=== PATIENT | female | born 1965 | race Caucasian/White ===

== ENCOUNTER 2017-10-17 22:11 | Emergency (ER) | payer OTHER ==
[~2017-10-17] VITALS: Ht 172.7 cm; Wt 108.9 kg
== END 2017-10-17 23:38 | disposition home or self-care (01) ==
LOC: ER 22:11
DX: B37.2 Candidiasis of skin and nail (principal)
CPT/HCPCS: 99282

== ENCOUNTER 2022-01-04 18:11 | Emergency (ER) | payer OTHER ==
[~2022-01-04] VITALS: Ht 172.7 cm; Wt 108.9 kg
[2022-01-04] MEDS ORDERED: ONDANSETRON HCL INJ 2MG/ML 2ML 2 MG/ML VIAL IV PRN (19:30)
[2022-01-04] MEDS ORDERED: SODIUM CHLORIDE 0.9% 1000ML 1,000 ML IV ONE (19:30)
[2022-01-04 19:33] LABS: BASOPHILS # (AUTO) 0.1 (0.0-0.1); BASOPHILS % 1.1 % (0.0-1.0); EOSINOPHILS # (AUTO) 0.1 (0.0-0.4); HEMATOCRIT 44.6 % (34.2-44.1); HEMOGLOBIN 14.9 g/dL (12.0-16.0); LYMPHOCYTES # (AUTO) 2.3 (1.0-3.2); LYMPHOCYTES % 40.9 % (18.0-39.1); MEAN CORPUSCULAR HEMOGLOBIN 29.3 pg (28-32); MEAN CORPUSCULAR HGB CONC 33.4 g/dL (31-35); MEAN CORPUSCULAR VOLUME 87.6 fL (81-99); MONOCYTES # (AUTO) 0.7 (0.2-0.8); MONOCYTES % 13.2 % (4.4-11.3); NEUTROPHILS # (AUTO) 2.4 (2.1-6.9); NEUTROPHILS % 42.6 % (38.7-80.0); PLATELET COUNT 270 x10e3/uL (140-360); RED BLOOD COUNT 5.09 x10e6/uL (3.6-5.1); RED CELL DISTRIBUTION WIDTH 12.5 % (11.7-14.4)
[2022-01-04 19:51] LABS: ANION GAP 17.8 mmol/L (8-16); CALCIUM 9.7 mg/dL (8.4-10.2); CREATININE, SERUM 0.84 mg/dL (0.57-1.11); POTASSIUM 3.8 mmol/L (3.5-5.1)
[2022-01-04 19:53] LABS: CLARITY,URINE SL CLOUDY (CLEAR); COLOR,URINE AMBER (YELLOW); KETONES,URINE 2+ (NEGATIVE); LEUKOCYTE ESTERASE ,URINE NEGATIVE (NEGATIVE); NITRITE,URINE NEGATIVE (NEGATIVE); PROTEIN,URINE DIPSTICK 2+ (NEGATIVE); URINE UROBILINOGEN 1 mg/dL (0.2 - 1)
[2022-01-04] MEDS ORDERED: ONDANSETRON ODT4 MG PO (19:55)
[2022-01-04 20:04] LABS: AMORPHOUS SEDIMENT,URINE MODERATE (FEW); BACTERIA,URINE FEW /HPF; CALCIUM OXALATE CRYSTALS,UR MODERATE (FEW); EPITHELIAL CELLS,URINE FEW /LPF
[2022-01-04 20:04] LABS: MAGNESIUM 2.1 MG/DL (1.3-2.1)
[2022-01-04 20:44] VITALS: BP 112/68
== END 2022-01-04 21:00 | disposition home or self-care (01) ==
LOC: ER 19:30
DX: E86.0 Dehydration (principal); R11.2 Nausea with vomiting, unspecified; I10 Essential (primary) hypertension; E03.9 Hypothyroidism, unspecified; G40.909 Epilepsy, unspecified, not intractable, without status epilepticus; F32.A Depression, unspecified; Z98.84 Bariatric surgery status
CPT/HCPCS: 36415; 74018; 80053; 81001; 83690; 83735; 85025; 99284; J2405; J7030

== ENCOUNTER 2022-04-13 17:25 | Emergency (ER) | payer OTHER ==
[~2022-04-13] VITALS: Ht 172.7 cm; Wt 108.9 kg
[~2022-04-13 17:25] MED LIST: ONDANSETRON ODT4 MG PO
[2022-04-13 18:15] LABS: BASOPHILS % 0.7 % (0.0-1.0); EOSINOPHILS # (AUTO) 0.1 (0.0-0.4); EOSINOPHILS % 1.1 % (0.0-6.0); HEMATOCRIT 41.3 % (34.2-44.1); HEMOGLOBIN 13.9 g/dL (12.0-16.0); LYMPHOCYTES # (AUTO) 2.4 (1.0-3.2); LYMPHOCYTES % 43.4 % (18.0-39.1); MEAN CORPUSCULAR HEMOGLOBIN 29.7 pg (28-32); MEAN CORPUSCULAR HGB CONC 33.7 g/dL (31-35); MEAN CORPUSCULAR VOLUME 88.2 fL (81-99); MONOCYTES # (AUTO) 0.5 (0.2-0.8); MONOCYTES % 9.7 % (4.4-11.3); NEUTROPHILS # (AUTO) 2.5 (2.1-6.9); NEUTROPHILS % 44.9 % (38.7-80.0); PLATELET COUNT 269 x10e3/uL (140-360); RED BLOOD COUNT 4.68 x10e6/uL (3.6-5.1); RED CELL DISTRIBUTION WIDTH 12.4 % (11.7-14.4)
[2022-04-13] MEDS ORDERED: PROMETHAZINE HCL (IM) 25 MG/ML VIAL IM ONE (18:15)
[2022-04-13] MEDS ORDERED: SODIUM CHLORIDE 0.9% 1000ML 1,000 ML IV ONE (18:15)
[2022-04-13 18:37] LABS: ALBUMIN 3.7 g/dL (3.5-5.0); ALBUMIN/GLOBULIN RATIO 1.2 (0.8-2.0); ANION GAP 13.5 mmol/L (8-16); CALCIUM 9.4 mg/dL (8.4-10.2); CREATININE, SERUM 0.95 mg/dL (0.57-1.11); POTASSIUM 3.5 mmol/L (3.5-5.1)
[2022-04-13 18:38] LABS: LIPASE 12 U/L (8-78)
[2022-04-13] MEDS ORDERED: DICYCLOMINE HCL20 MG PO (21:06)
[2022-04-13] MEDS ORDERED: ONDANSETRON ODT4 MG PO (21:06)
[2022-04-13] MEDS ORDERED: HYDROCODON-ACE1 EA12 PO (21:06)
[2022-04-13 21:33] VITALS: BP 119/79
== END 2022-04-13 21:45 | disposition home or self-care (01) ==
LOC: ER 17:30
DX: R10.11 Right upper quadrant pain (principal); K80.20 Calculus of gallbladder without cholecystitis without obstruction; K80.50 Calculus of bile duct without cholangitis or cholecystitis without obstruction; R11.0 Nausea; I10 Essential (primary) hypertension; E03.9 Hypothyroidism, unspecified; G40.909 Epilepsy, unspecified, not intractable, without status epilepticus; F32.A Depression, unspecified; Z98.84 Bariatric surgery status
CPT/HCPCS: 36415; 76705; 80053; 83690; 84484; 85025; 93005; 99284; J2550; J7030

== ENCOUNTER 2024-10-04 10:08 | Emergency (ER) | payer OTHER ==
[~2024-10-04] VITALS: Ht 172.7 cm; Wt 68.9 kg
[2024-10-04 10:08] VITALS: TEMP 98.3
[~2024-10-04 10:08] MED LIST changes: +DICYCLOMINE HCL20 MG PO; +HYDROCODON-ACE1 EA12 PO
[2024-10-04] MEDS ORDERED: LACOSAMIDE10 MG/1 ML PO (10:28)
[2024-10-04] MEDS ORDERED: SERTRALINE HCL50 MG PO (10:28)
[2024-10-04] MEDS ORDERED: CLONAZEPAM1 MG (10:28)
[2024-10-04] MEDS ORDERED: LEVOTHYROXINE150 MCG PO (10:28)
[2024-10-04] MEDS ORDERED: VALPROIC A250 MG/5 M PO (10:28)
[2024-10-04 11:36] VITALS: PULSE 59; RESP 16
[2024-10-04] MEDS: ACETAMINOPHEN 325 MG TAB PO ONE (11:41)
[2024-10-04 12:00] VITALS: BP 126/70; PULSE 59; RESP 15; O2SAT 100
== END 2024-10-04 12:00 | disposition home or self-care (01) ==
LOC: ER 10:16
DX: G40.909 Epilepsy, unspecified, not intractable, without status epilepticus (principal); I10 Essential (primary) hypertension; E03.9 Hypothyroidism, unspecified; F32.A Depression, unspecified; Z98.84 Bariatric surgery status
CPT/HCPCS: 93005; 99283